=== PATIENT | female | born 1990 | race Caucasian/White ===

== ENCOUNTER 2019-08-13 11:54 | Emergency (ER) | payer OTHER ==
[~2019-08-13] VITALS: Ht 167.6 cm; Wt 61.2 kg
[~2019-08-13 11:54] MED LIST: KEFLEX500 MG PO; NORCO 5-325 TA1 EACH PO; ONDANSETRON ODT8 MG PO
[2019-08-13] MEDS ORDERED: ONDANSETRON ODT8 MG PO (15:42)
== END 2019-08-13 16:00 | disposition home or self-care (01) ==
LOC: ED 11:54
DX: K52.9 Noninfective gastroenteritis and colitis, unspecified (principal); Z79.899 Other long term (current) drug therapy
CPT/HCPCS: 80053; 81001; 83690; 84703; 85025; 96361; 96374; 96375; 96376; 99284-25; J2270; J2405; J7030

== ENCOUNTER 2019-08-17 15:44 | Emergency (ER) | payer OTHER ==
[~2019-08-17] VITALS: Ht 167.6 cm; Wt 61.2 kg
--- OUTSIDE RECORDS SUMMARY | 2019-08-17 15:46 | XMS ---
PreManage Notification: KAMERON SALINAS Security Watch Guard Gate Events No recent Security Events currently on file CRITERIA MET - [facility] - 2 Visits in 30 Days CARE PROVIDERS DEXTER BERMAN Primary Care Current PHONE: [phone] [facility] 05/11/2012-Current PHONE: [phone] DEXTER BERMNA Primary Care Current PHONE: [phone] Chris has no Care Guidelines for this patient. E.D. VISIT COUNT (12 MO.) 3 [facility] TOTAL 3 NOTE: Visits indicate total known visits. ED/UCC VISIT TRACKING (12 MO.) 08/17/2019 15:44 [facility] TYPE: Emergency COMPLAINT: - VOMITING 08/13/2019 11:55 [facility] TYPE: Emergency COMPLAINT: - ABD PAIN, VOMITING DIAGNOSES: - Unspecified abdominal pain - Other care home (current) drug therapy - Noninfective gastroenteritis and colitis, unspecified 06/29/2019 06:[address] [facility] TYPE: Emergency COMPLAINT: - MID/LOW BACK PAIN,FEVER DIAGNOSES: - Tubulo-interstitial nephritis, not specified as acute or chronic - Dysuria INPATIENT VISIT TRACKING (12 MO.) No inpatient visits to display in this time frame [email or web address]
[2019-08-17] MEDS ORDERED: PROTONIX20 MG PO (19:53)
== END 2019-08-17 20:06 | disposition home or self-care (01) ==
LOC: ED 15:44
DX: K21.9 Gastro-esophageal reflux disease without esophagitis (principal); Z88.8 Allergy status to other drugs, medicaments and biological substances
CPT/HCPCS: 80053; 81001; 83735; 84703; 85025; 96374; 96375; 99284-25; J1200; J1630; J2405; J7040